=== PATIENT | male | born 2000 | race African-American/Black ===

== ENCOUNTER 2019-10-04 11:06 | Emergency (ER) | payer MEDICAID ==
[~2019-10-04] VITALS: Ht 188 cm; Wt 104.5 kg
[2019-10-04] MEDS ORDERED: KETOROLAC TROMETHAMINE 60 MG/2 ML VIAL IM ONE (12:15)
[2019-10-04] MEDS ORDERED: DEXAMETHASONE SOD PHOS 4 MG/ML 5 ML VIAL IM ONE (12:15)
[2019-10-04] MEDS ORDERED: PENICILLIN G BENZATHINE LA 1,200,000 UNITS/2 ML SYRINGE IM ONE (12:15)
[2019-10-04 13:30] VITALS: BP 137/67
== END 2019-10-04 13:41 | disposition home or self-care (01) ==
LOC: EMS 11:09
DX: J02.9 Acute pharyngitis, unspecified (principal); F12.90 Cannabis use, unspecified, uncomplicated
CPT/HCPCS: 96372; 99283; J0561; J1100; J1885